=== PATIENT | male | born 1970 | race Caucasian/White ===

== ENCOUNTER 2017-07-02 16:44 | Emergency (ER) | payer OTHER ==
[2017-07-02 18:25] VITALS: BP 114/71
--- NOTE | 2017-07-02 18:40 | UC ---
Lower Extremity/Ankle HPI - HPI Summary HPI Summary: 46 year old male presents with complains of right knee pain secondary to twisting it. - History of Current Complaint Chief Complaint: UCLowerExtremity Stated Complaint: RIGHT KNEE INJURY WC Time Seen by Provider: 07/02/17 18:24 Hx Obtained From: Patient Onset/Duration: Sudden Onset Severity Initially: Moderate Severity Currently: Moderate Pain Scale Used: 0-10 Numeric - 5 - Allergies/Home Medications Allergies/Adverse Reactions: Allergies Allergy/AdvReac Type Severity Reaction Status Date / Time No Known Allergies Allergy Verified 07/02/17 18:25 PMH/Surg Hx/FS Hx/Imm Hx Previously Healthy: Yes - Surgical History Surgical History: Yes Surgery Procedure, Year, and Place: Appendectomy. right knee surgery. partial large intestine removed - Social History Alcohol Use: Weekly Substance Use Type: Marijuana Substance Use Comment - Amount & Last Used: occasional Smoking Status (MU): Never Smoked Tobacco - Immunization History Most Recent Influenza Vaccination: none Most Recent Tetanus Shot: within 10 yrs Review of Systems Constitutional: Negative Skin: Negative Eyes: Negative ENT: Negative Respiratory: Negative Cardiovascular: Negative Gastrointestinal: Negative Genitourinary: Negative Motor: Negative Neurovascular: Negative Musculoskeletal: Other: - right knee pain Neurological: Negative Psychological: Negative All Other Systems Reviewed And Are Negative: Yes Physical Exam Triage Information Reviewed: Yes Appearance: Well-Appearing Vital Signs: Initial Vital Signs Temp 37.4 C 07/02/17 18:20 Pulse 70 07/02/17 18:20 Resp 17 07/02/17 18:20 BP 114/71 07/02/17 18:20 Pulse Ox 98 07/02/17 18:20 Vital Signs Reviewed: Yes Eye Exam: Normal ENT Exam: Normal Dental Exam: Normal Neck exam: Normal Neck: Positive: 1 Respiratory Exam: Normal Cardiovascular Exam: Normal Abdominal Exam: Normal Musculoskeletal: Positive: Other: - right knee pain Neurological Exam: Normal Psychological Exam: Normal Skin Exam: Normal Lower Extremity Course/Dx - Differential Dx/Diagnosis Provider Diagnoses: right medial knee pain Discharge - Discharge Plan Condition: Stable Disposition: HOME Prescriptions: Meloxicam [Mobic] 7.5 mg PO BID PC #30 tab Patient Education Materials: Knee Pain (ED) Referrals: Roosevelt Jensen MD [Medical Doctor] - Mich Andrea DO [Primary Care Provider] -
--- NOTE | 2017-07-02 19:05 | RAD ---
Indication: Right knee injury and pain after fall 4 views of the right knee demonstrates no fracture. No joint effusion is noted. No other bone or joint abnormality is noted. IMPRESSION: Unremarkable right knee.
== END 2017-07-02 19:20 | disposition home or self-care (01) ==
LOC: UCCORT 16:44
DX: M25.561 Pain in right knee (principal)
CPT/HCPCS: 99201; G0463

== ENCOUNTER 2019-01-12 14:26 | Emergency (ER) | payer BC, OTHER ==
[2019-01-12 16:39] VITALS: BP 106/67
--- NOTE | 2019-01-12 16:44 | UC ---
Skin Complaint HPI - HPI Summary HPI Summary: 48 y/o male presents to the urgent care c/o a tick embedded in his L inner elbow area this afternoon. He states he took a shower this morning at 0900 and tick was not there. He states [place]. Tick was on him <6 hrs. No hx of Lyme disease, however has has tick bite in the past. Area itches, but denies pain. Pt denies fever, joint pain , BOYCE, chest pain, abdominal pain, N/v/D - History of Current Complaint Chief Complaint: UCSkin Time Seen by Provider: 01/12/19 16:24 Stated Complaint: TICK BITE Hx Obtained From: Patient Onset/Duration: Sudden Onset, Lasting Hours - 4 hrs, Resolved - tick removed Skin Exposure Onset/Duration: Hours Ago - >6hrs Timing: Constant Onset Severity: Mild Current Severity: Mild Pain Intensity: 0 Pain Scale Used: 0-10 Numeric Location: Discrete - left elbow Character: Pruritus, Redness Aggravating Factor(s): Touch Alleviating Factor(s): Other - tick removal Associated Signs & Symptoms: Positive: Rash - tick bite on left elbow. Negative : Fever, Chills Related History: Possible Reaction to: Insect - Allergy/Home Medications Allergies/Adverse Reactions: Allergies Allergy/AdvReac Type Severity Reaction Status Date / Time No Known Allergies Allergy Verified 01/12/19 16:39 Home Medications: Home Medications NK [No Home Medications Reported] 01/12/19 [History Confirmed 01/12/19] PMH/Surg Hx/FS Hx/Imm Hx Previously Healthy: Yes - Pt denies PMHX - Surgical History Surgical History: Yes Surgery Procedure, Year, and Place: Appendectomy. right knee surgery. partial large intestine removed - Family History Known Family History: Positive: None - Pt denies FMHX - Social History Occupation: Employed Full-time Lives: With Family Alcohol Use: Weekly Substance Use Type: Marijuana Substance Use Comment - Amount & Last Used: daily use Smoking Status (MU): Current Every Day Smoker Type: Smokeless Tobacco Amount Used/How Often: "every so often" - Immunization History Most Recent Influenza Vaccination: none Most Recent Tetanus Shot: within 10 yrs Review of Systems All Other Systems Reviewed And Are Negative: Yes Constitutional: Positive: Negative Skin: Positive: Other - tick bite on left elbow Eyes: Positive: Negative ENT: Positive: Negative Respiratory: Positive: Negative Cardiovascular: Positive: Negative Gastrointestinal: Positive: Negative Genitourinary: Positive: Negative Motor: Positive: Negative Neurovascular: Positive: Negative Musculoskeletal: Positive: Negative Neurological: Positive: Negative Psychological: Positive: Negative Is Patient Immunocompromised?: No Physical Exam - Summary Physical Exam Summary: Vital Signs Reviewed: Yes General: well developed, well nourished male sitting in the examining table w/o any apparent distress. Eyes: Positive: Conjunctiva Clear - PERRLA, EOMI ENT: Positive: Normal ENT inspection, Hearing grossly normal, Pharynx normal, TMs normal Neck: Positive: Supple, Nontender, No Lymphadenopathy Respiratory: Positive: Chest nontender, Lungs clear, Normal breath sounds Cardiovascular: Positive: RRR, No Murmur, Pulses Normal Abdomen Description: Positive: Nontender, No Organomegaly, Soft. Negative: CVA Tenderness (R), CVA Tenderness (L) Bowel Sounds: Positive: Present Musculoskeletal: Positive: Strength Intact, ROM Intact, No Edema Neurological Exam: Normal Psychological Exam: Normal Skin: Positive: rashes - Proximal medial aspect of Left elbow w/ tick bite with surrounding erythema, non tender to palpation. tick no longer present, no swelling or drainage observed. Triage Information Reviewed: Yes Vital Signs: Initial Vital Signs Temp 97.3 F 01/12/19 16:35 Pulse 60 01/12/19 16:35 Resp 14 01/12/19 16:35 BP 106/67 01/12/19 16:35 Pulse Ox 98 01/12/19 16:35 Course/Dx - Course Course Of Treatment: 48 y/o male presents to the urgent care c/o a tick embedded in his L inner elbow area this afternoon. He states he took a shower this morning at 0900 and tick was not there. He states [place]. Tick was on him <6 hrs. No hx of Lyme disease, however has has tick bite in the past. Area itches, but denies pain. Pt denies fever, joint pain , BOYCE, chest pain, abdominal pain, N/v/D Hx obtained. Pt w/ tick bite over the medial aspect of the left elbow, tick no longer present. the skin cleaned w/ alcohol swab. Antibiotic prophylaxis with Doxycycline PO given to the patient to prevent Lyme Disease.. Pt tolerated well medication. Pt advised to observe the area for the development or Erythema Migrans for upto 30 days following exposure. Advised if he develops fever or erythema Migrans to return to the clinic or PCP for further treatment. d/c instructions explained. Pt understood and agreed with plan of care. - Differential Diagnoses - Skin Complaint Differential Diagnoses: Abscess, Contact Dermatitis, Local Allergic Reaction, Tick Born Illness, Other - insect bite, bee sting - Diagnoses Provider Diagnosis: Tick bite of left upper arm Discharge - Sign-Out/Discharge Documenting (check all that apply): Patient Departure - d/c home All imaging exams completed and their final reports reviewed: No Studies - Discharge Plan Condition: Stable Disposition: HOME Patient Education Materials: Tick Bite (ED) Referrals: [facility] [Outside] - 2 Weeks Abner KULKARNI,[place] [Medical Doctor] - If Needed Additional Instructions: 1- Please observe the area for the development or Erythema Migrans for upto 30 days following exposure. Components of the tick saliva can cause transient erythema that should not be confused with Erythema Migrans. If you develop the bull's eye rash, fever, joint pains please return to the urgent care or f/u with your PCP for further management. 2-Antibiotic prophylaxis with Doxycycline was given to you today to prevent Lyme Disease. Lyme serology can be drawn in 2 weeks with your PCP to r/o Lyme disease since there is probability of negative results at early exposure. If you developed the lyme rash you can also f/u w/ Dr Levine who specialize in Lyme disease - Billing Disposition and Condition Condition: STABLE Disposition: Home
[2019-01-12] MEDS ORDERED: DOXYcycline CAP(*) 100 MG PO ONE (16:54)
== END 2019-01-12 17:09 | disposition home or self-care (01) ==
LOC: UCCORT 14:26
DX: S40.862A Insect bite (nonvenomous) of left upper arm, initial encounter (principal); W57.XXXA Bitten or stung by nonvenomous insect and other nonvenomous arthropods, initial encounter; Y92.9 Unspecified place or not applicable
CPT/HCPCS: 99212; A9270-GY; G0463

== ENCOUNTER 2019-03-19 07:09 | Emergency (ER) | payer BC ==
[2019-03-19 07:19] VITALS: BP 118/76
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
== END 2019-03-19 08:38 | disposition home or self-care (01) ==
LOC: UCCORT 07:09
DX: S42.255A Nondisplaced fracture of greater tuberosity of left humerus, initial encounter for closed fracture (principal); S43.102A Unspecified dislocation of left acromioclavicular joint, initial encounter; V28.4XXA Motorcycle driver injured in noncollision transport accident in traffic accident, initial encounter; Y92.9 Unspecified place or not applicable; Z88.5 Allergy status to narcotic agent; F17.210 Nicotine dependence, cigarettes, uncomplicated
CPT/HCPCS: 99211; G0463

== ENCOUNTER 2019-07-02 07:58 | Emergency (ER) | payer BC ==
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
[2019-07-02 08:09] VITALS: BP 120/73
[2019-07-02] MEDS ORDERED: DOXYcycline CAP(*) 100 MG PO ONE (08:12)
--- NOTE | 2019-07-02 08:16 | UC ---
Skin Complaint HPI - HPI Summary HPI Summary: tick bite right lower abdominal area x 2 days tick was removed by the pt. denies any fever, no chills, no body aches and no rash - History of Current Complaint Chief Complaint: UCSkin Time Seen by Provider: 07/02/19 08:05 Stated Complaint: TICK BITE Hx Obtained From: Patient Onset/Duration: Gradual Onset, Lasting Days - 2, Resolved Timing: Constant Onset Severity: Mild Current Severity: Mild Pain Intensity: 0 Location: Other - RLQ abdominal wall Character: Redness Aggravating Factor(s): Nothing Alleviating Factor(s): Nothing Associated Signs & Symptoms: Positive: Negative. Negative: Fever, Chills, Rash , Red Streaks - Allergy/Home Medications Allergies/Adverse Reactions: Allergies Allergy/AdvReac Type Severity Reaction Status Date / Time morphine Allergy Nausea And Verified 07/02/19 08:09 Vomiting Home Medications: Home Medications Ibuprofen TAB* [Advil TAB*] 200 mg PO Q6H PRN 07/02/19 [History Confirmed ] PMH/Surg Hx/FS Hx/Imm Hx Previously Healthy: Yes - Surgical History Surgical History: Yes Surgery Procedure, Year, and Place: Appendectomy. right knee surgery. partial large intestine removed. rotator cuff repair - Family History Known Family History: Positive: None - Pt denies FMHX Negative: Diabetes - Social History Alcohol Use: Occasionally Substance Use Type: Marijuana Substance Use Comment - Amount & Last Used: daily use Smoking Status (MU): Former Smoker Type: Smokeless Tobacco Amount Used/How Often: "every so often" When Did the Patient Quit Smoking/Using Tobacco: longtime - Immunization History Most Recent Influenza Vaccination: none Most Recent Tetanus Shot: within 10 yrs Review of Systems All Other Systems Reviewed And Are Negative: Yes Constitutional: Positive: Negative Skin: Positive: Negative Eyes: Positive: Negative ENT: Positive: Negative Respiratory: Positive: Negative Is Patient Immunocompromised?: No Physical Exam Triage Information Reviewed: Yes Appearance: Well-Appearing, No Pain Distress, Well-Nourished Vital Signs: Initial Vital Signs Temp 98.1 F 07/02/19 08:05 Pulse 71 07/02/19 08:05 Resp 16 07/02/19 08:05 BP 120/73 07/02/19 08:05 Pulse Ox 98 07/02/19 08:05 Vital Signs Reviewed: Yes Eye Exam: Normal Eyes: Positive: Conjunctiva Clear ENT: Positive: Normal ENT inspection, Hearing grossly normal, Pharynx normal Neck: Positive: Supple, Nontender, No Lymphadenopathy Respiratory: Positive: Chest non-tender, Lungs clear, Normal breath sounds Cardiovascular: Positive: RRR, No Murmur, Pulses Normal Abdominal Exam: Normal Skin: Positive: Other - tick site RLQ , tick was removed by the pt. Course/Dx - Diagnoses Provider Diagnosis: Tick bite of abdominal wall Discharge ED - Sign-Out/Discharge Documenting (check all that apply): Patient Departure All imaging exams completed and their final reports reviewed: No Studies - Discharge Plan Condition: Stable Disposition: HOME Patient Education Materials: Tick Bite (ED) Referrals: No Primary Care Phys,NOPCP [Primary Care Provider] - If Needed - Billing Disposition and Condition Condition: STABLE Disposition: Home
== END 2019-07-02 08:19 | disposition home or self-care (01) ==
LOC: UCCORT 07:58
DX: S30.861A Insect bite (nonvenomous) of abdominal wall, initial encounter (principal); Z88.5 Allergy status to narcotic agent; Z87.891 Personal history of nicotine dependence; W57.XXXA Bitten or stung by nonvenomous insect and other nonvenomous arthropods, initial encounter; Y92.9 Unspecified place or not applicable
CPT/HCPCS: 99212; A9270-GY; G0463